=== PATIENT | female | born 1995 | race American Indian/Alaskan Native ===

== ENCOUNTER 2019-05-24 11:43 | Emergency (ER) | payer MEDICAID, MEDICARE ==
--- NOTE | 2019-05-24 12:38 | XRay Report ---
HISTORY:PAIN AND SWELLING COMPARISON: None. TECHNIQUE: AP and lateral views were obtained FINDINGS: Bones: Fracture distal aspect of the cuneiform is noted. This may enter the articular space of the cu neiform metatarsal articulation Joint spaces: Maintained. Soft tissues: No significant abnormality. Additional findings: None. IMPRESSION: 1. Fracture as noted Signer Name: Dougie Park MD Signed: 05/24/2019 12:33 PM Workstation Name: [id number]
[2019-05-24] MEDS ORDERED: IBUPROFEN 800 MG TAB PO ONE (12:42)
--- NOTE | 2019-05-24 13:23 | Emergency Department Report ---
ED General Adult HPI - General Chief complaint: Extremity Injury, Lower Stated complaint: LEFT FOOT PAIN Time Seen by Provider: 05/24/19 12:16 Source: patient Mode of arrival: Wheelchair Limitations: No Limitations - History of Present Illness Initial comments: This is a 24-year-old female who presents the ED complaining of left foot and ankle pain that started yesterday. Patient states that she was walking last night around 7 PM when she accidentally stepped in a pothole. Patient states that pain began shortly after that is gotten a bit worse today with some swelling. Patient states that pain is only worsened with applied pressure. She denies difficulty walking, deformity, loss of consciousness or falling to the ground Severity scale (0 -10): 10 - Related Data Previous Rx's Medication Instructions Recorded Last Taken Type Ibuprofen [Motrin] 800 mg PO Q8HR #30 tablet 05/24/19 Unknown Rx Allergies Allergy/AdvReac Type Severity Reaction Status Date / Time No Known Allergies Allergy Unverified 05/24/19 11:50 ED Review of Systems ROS: Stated complaint: LEFT FOOT PAIN Other details as noted in HPI Comment: All other systems reviewed and negative ED Past Medical Hx - Past Medical History Previous Medical History?: No - Surgical History Past Surgical History?: No - Social History Smoking Status: Never Smoker Substance Use Type: None - Medications Home Medications: Home Medications Medication Instructions Recorded Confirmed Last Taken Type Ibuprofen [Motrin] 800 mg PO Q8HR #30 tablet 05/24/19 Unknown Rx ED Physical Exam - General Limitations: No Limitations General appearance: alert, in no apparent distress - Head Head exam: Present: atraumatic, normocephalic - Eye Eye exam: Present: normal appearance - ENT ENT exam: Present: mucous membranes moist - Neck Neck exam: Present: normal inspection - Respiratory Respiratory exam: Present: normal lung sounds bilaterally. Absent: respiratory distress - Cardiovascular Cardiovascular Exam: Present: regular rate, normal rhythm. Absent: systolic murmur, diastolic murmur, rubs, gallop - GI/Abdominal GI/Abdominal exam: Present: soft, normal bowel sounds - Extremities Exam Extremities exam: Present: normal inspection - Expanded Lower Extremity Exam Left Hip exam: Present: full ROM. Absent: tenderness, swelling Upper Leg exam: Present: normal inspection, full ROM Knee exam: Present: normal inspection. Absent: full ROM, tenderness, swelling Lower Leg exam: Present: normal inspection. Absent: full ROM, tenderness, swelling Ankle exam: Present: normal inspection, full ROM, swelling. Absent: tenderness Foot/Toe exam: Present: full ROM, tenderness (To palpation of the anterior aspect of the foot), swelling (Mild swelling to the anterior foot). Absent: abrasion, laceration, ecchymosis, dislocation, erythema, puncture wound - Back Exam Back exam: Present: normal inspection - Neurological Exam Neurological exam: Present: alert, oriented X3 - Psychiatric Psychiatric exam: Present: normal affect, normal mood - Skin Skin exam: Present: warm, dry, intact, normal color. Absent: rash ED Course Vital Signs 05/24/19 05/24/19 12:53 13:53 Respiratory 18 18 Rate ED Medical Decision Making - Radiology Data Radiology results: report reviewed, image reviewed Fluoro Time In Minutes: HISTORY:PAIN AND SWELLING COMPARISON: None. TECHNIQUE: AP and lateral views were obtained FINDINGS: Bones: Fracture distal aspect of the cuneiform is noted. This may enter the articular space of the cuneiform metatarsal articulation Joint spaces: Maintained. Soft tissues: No significant abnormality. Additional findings: None. IMPRESSION: 1. Fracture as noted Signer Name: Dougie Park MD Signed: 05/24/2019 12:33 PM Workstation Name: [id number] - Medical Decision Making 24-year-old female presents to ED with minimal closed nondisplaced fracture of the cuneiform bone of the foot ED course: Patient received Motrin in ED. X-rays of the foot shows, see report above Vital signs are normal patient is in no acute distress Discussed with patient follow-up with primary care physician. Discussed the patient and take medications as prescribed. Discussed with patient to follow-up with orthopedic doctor within a week. Patient placed in a Albino wrap and postop shoe. Discussed with patient that fracture will heal within 6 to 8 weeks Patient has no neurological deficit. Patient is alert and oriented 3 and understands all instructions given. Critical care attestation.: If time is entered above; I have spent that time in minutes in the direct care of this critically ill patient, excluding procedure time. ED Disposition Clinical Impression: Cuneiform fracture, foot, Closed fracture of foot Disposition: - TO HOME OR SELFCARE Is pt being admited?: No Does the pt Need Aspirin: No Condition: Stable Instructions: Foot Fracture in Adults (ED), Foot Sprain (ED) Additional Instructions: Make sure to follow up with the primary care physician as discussed. Take all your medications as you've been prescribed. If you have any worsening symptoms or develop new symptoms please return to ED immediately. Prescriptions: Ibuprofen [Motrin] 800 mg PO Q8HR #30 tablet Referrals: PRIMARY CAREMD [Primary Care Provider] - 3-5 Days FRANCESCO VÁSQUEZ MD [Staff Physician] - 3-5 Days Forms: Work/School Release Form(ED) Time of Disposition: 13:32
== END 2019-05-24 13:50 | disposition home or self-care (01) ==
LOC: ED 11:43
DX: S92.232A Displaced fracture of intermediate cuneiform of left foot, initial encounter for closed fracture (principal); X58.XXXA Exposure to other specified factors, initial encounter; Y93.89 Activity, other specified; Y92.89 Other specified places as the place of occurrence of the external cause; Y99.8 Other external cause status

== ENCOUNTER 2019-12-11 15:34 | Emergency (ER) | payer MEDICAID ==
[2019-12-11 16:12] VITALS: BP 108/69
--- NOTE | 2019-12-11 16:32 | Event Note ---
ED Screening Note ED Screening Note: suprapubic abd pain that began yesterday low back pain no dysuria +urinary frequency no vaginal discharge no itching or burning no fever no n/v/d PMHx none no allergies to meds LNMP: 09/07/2019 14 weeks RN CLINICAL TRIALS: [facility] no vaginal bleeding This initial assessment/diagnostic orders/clinical plan/treatment(s) is/are subject to change based on patients health status, clinical progression and re- assessment by fellow clinical providers in the ED. Further treatment and workup at subsequent clinical providers discretion. Patient/guardian urged not to elope from the ED as their condition may be serious if not clinically assessed and managed. Initial orders include: labs, UA, US
[2019-12-11 17:25] LABS: Basophils % (Auto) 0.5 % (0.0-1.8); Eosinophils # (Auto) 0.1 K/mm3 (0.0-0.4); Eosinophils % (Auto) 1.6 % (0.0-4.3); Hematocrit 40.2 % (30.3-42.9); Hemoglobin 13.7 gm/dl (10.1-14.3); Lymphocytes # (Auto) 1.5 K/mm3 (1.2-5.4); Lymphocytes % (Auto) 25.1 % (13.4-35.0); Mean Corpuscular HGB Conc 34 % (30-34); Mean Corpuscular Volume 89 fl (79-97); Monocytes # (Auto) 0.5 K/mm3 (0.0-0.8); Platelet Count 169 K/mm3 (140-440); Red Cell Distribution Width 13.7 % (13.2-15.2)
[2019-12-11 17:30] LABS: Alanine Aminotransferase 16 units/L (7-56); Albumin 3.5 g/dL (3.9-5); Blood Urea Nitrogen 5 mg/dL (7-17); Calcium 9.2 mg/dL (8.4-10.2); Hemolysis Index 0
[2019-12-11 17:31] LABS: BUN/Creatinine Ratio 17
--- NOTE | 2019-12-11 18:34 | Ultrasound Report ---
ULTRASOUND OBSTETRIC INDICATION / CLINICAL INFORMATION: , abd pain, back pain. TECHNIQUE: Transabdominal. COMPARISON: None available. FINDINGS: GESTATIONAL SAC: Well-defined oval shape and intrauterine in location. YOLK SAC: No significant abnormality. EMBRYO/FETUS: No significant abnormality. - [place]-Rump Length = 7.8 cm = 13 weeks, 6 day(s). - Heart Rate, beats per minute (if present) = 156 ADNEXA: No significant abnormality. FREE FLUID: None. ADDITIONAL FINDINGS: None. IMPRESSION: 1. Single, living intrauterine with estimated sonographic age of 13 weeks, 6 day(s). Signer Name: Cleveland Kee MD Signed: 12/11/2019 6:30 PM Workstation Name: [id number]
[2019-12-11] MEDS ORDERED: LACTATED RINGERS 1,000 ML IV ONE (19:29)
[2019-12-11] MEDS ORDERED: METOCLOPRAMIDE 10 MG/2 ML INJ IV ONE (19:29)
[2019-12-11] MEDS ORDERED: diphenhydrAMINE 50 MG/ML VIAL IV ONE (19:29)
--- NOTE | 2019-12-11 19:34 | Emergency Department Report ---
ED General Adult HPI - General Chief complaint: Abdominal Pain Stated complaint: ABD PAIN, MIGRAINE PUI?: No Time Seen by Provider: 12/11/19 16:30 Source: patient Mode of arrival: Ambulatory Limitations: No Limitations - History of Present Illness Initial comments: 24-year-old female presenting with multiple complaints. She states that she is about 13 weeks and for the past 2 to 3 days has had a headache consistent with prior migraines with no new features associated with nausea and photophobia. She also complains of abdominal pain, epigastric in location, nonradiating. Denies any vaginal bleeding or lower abdominal pain. Symptoms gradual in onset, moderate in severity with no modifying factors. - Related Data Previous Rx's Medication Instructions Recorded Last Taken Type Ibuprofen [Motrin] 800 mg PO Q8HR #30 tablet 05/24/19 Unknown Rx Metoclopramide [Reglan] 10 mg PO ACHS #20 tablet 12/11/19 Unknown Rx cephALEXin [Keflex] 500 mg PO Q12HR #14 cap 12/11/19 Unknown Rx Allergies Allergy/AdvReac Type Severity Reaction Status Date / Time No Known Allergies Allergy Unverified 05/24/19 11:50 ED Review of Systems ROS: Stated complaint: ABD PAIN, MIGRAINE Other details as noted in HPI Comment: All other systems reviewed and negative Gastrointestinal: as per HPI Neurological: as per HPI ED Past Medical Hx - Past Medical History Previous Medical History?: No - Surgical History Past Surgical History?: No - Social History Smoking Status: Never Smoker Substance Use Type: None - Medications Home Medications: Home Medications Medication Instructions Recorded Confirmed Last Taken Type Ibuprofen [Motrin] 800 mg PO Q8HR #30 tablet 05/24/19 Unknown Rx Metoclopramide [Reglan] 10 mg PO ACHS #20 tablet 12/11/19 Unknown Rx cephALEXin [Keflex] 500 mg PO Q12HR #14 cap 12/11/19 Unknown Rx ED Physical Exam - General Limitations: No Limitations General appearance: alert, in no apparent distress - Head Head exam: Present: atraumatic, normocephalic - Eye Eye exam: Present: normal appearance, PERRL, EOMI - ENT ENT exam: Present: mucous membranes moist - Neck Neck exam: Present: normal inspection - Respiratory Respiratory exam: Present: normal lung sounds bilaterally. Absent: respiratory distress - Cardiovascular Cardiovascular Exam: Present: regular rate, normal rhythm. Absent: systolic murmur, diastolic murmur, rubs, gallop - GI/Abdominal GI/Abdominal exam: Present: soft, tenderness (Mild epigastric), normal bowel sounds. Absent: distended, guarding, rebound - Extremities Exam Extremities exam: Present: normal inspection - Back Exam Back exam: Present: normal inspection - Neurological Exam Neurological exam: Present: alert, oriented X3, CN II-XII intact, normal gait, reflexes normal. Absent: motor sensory deficit - Psychiatric Psychiatric exam: Present: normal affect, normal mood - Skin Skin exam: Present: warm, dry, intact, normal color. Absent: rash ED Course Vital Signs 12/11/19 16:11 Temperature 98.5 F Pulse Rate 75 Respiratory 18 Rate Blood Pressure 108/69 [Right] O2 Sat by Pulse 99 Oximetry ED Medical Decision Making - Lab Data Result diagrams: 12/11/19 16:45 12/11/19 16:45 - Radiology Data Radiology results: report reviewed normal us - Medical Decision Making Patient presenting with abdominal pain, nausea, migraines over the past 3 days. She is also 13 to 14 weeks . On my exam she has some mild epigastric tenderness, no focal neurologic deficits, remainder of exam normal. Labs and ultrasound were obtained, urinalysis ordered, IV fluids, Reglan, Benadryl ord ered. 204 resting comfortably no distress, UA does show some signs of infection, no symptoms but since she is we will treat this. Recommend outpatient follow-up with PCP or TRANSPORTATION PROGRAM DIRECTOR. - Differential Diagnosis Gastritis, viral syndrome, migraine Critical care attestation.: If time is entered above; I have spent that time in minutes in the direct care of this critically ill patient, excluding procedure time. ED Disposition Clinical Impression: Migraine Qualifiers: Migraine type: unspecified Status migrainosus presence: without status migraino scott Intractability: not intractable Qualified Code(s): G43.909 - Migraine, unspecified, not intractable, without status migrainosus UTI in Qualifiers: Trimester: second trimester Qualified Code(s): O23.42 - Unspecified infection of urinary tract in , second trimester Disposition: TO HOME OR SELFCARE Is pt being admited?: No Condition: Stable Instructions: Abdominal Pain (ED), Urinary Tract Infection, Adult, [id number], Migraine Headache, [id number] Prescriptions: cephALEXin [Keflex] 500 mg PO Q12HR #14 cap Metoclopramide [Reglan] 10 mg PO ACHS #20 tablet Referrals: MAIDA WILSON NP-C [Primary Care Provider] - 3-5 Days Time of Disposition: 20:53
[2019-12-11 20:47] LABS: Bacteria,Urine 1+ /HPF (Negative); Bilirubin,Urine NEG (Negative); Blood,Urine SM (Negative); Color,Urine Yellow (Yellow); Mucus,Urine 2+ /HPF; Urobilinogen,Urine < 2.0 mg/dL (<2.0)
== END 2019-12-11 21:00 | disposition home or self-care (01) ==
LOC: ED 15:34
DX: O23.41 Unspecified infection of urinary tract in pregnancy, first trimester (principal); O26.891 Other specified pregnancy related conditions, first trimester; G43.909 Migraine, unspecified, not intractable, without status migrainosus; Z3A.13 13 weeks gestation of pregnancy; Z79.1 Long term (current) use of non-steroidal anti-inflammatories (NSAID); Z79.899 Other long term (current) drug therapy
CPT/HCPCS: 36415; 76805; 80053; 81001; 83690; 84702; 85025; 87086; 96361; 96374; 96375; 99284; J1200; J2765; J7120

== ENCOUNTER 2019-12-17 16:14 | Emergency (ER) | payer MEDICAID ==
[2019-12-17 17:04] VITALS: BP 122/68
--- NOTE | 2019-12-17 18:22 | Event Note ---
ED Screening Note ED Screening Note: 24-year-old female who is 3 months paroxysmal department complaining of a 1 day history of vaginal bleeding presents emergency department to seek evaluation of her to ensure that L is still safe. She reports no pain no fever, chills, sweats no nausea vomiting This initial assessment/diagnostic orders/clinical plan/treatment(s) is/are subject to change based on patients health status, clinical progression and re- assessment by fellow clinical providers in the ED. Further treatment and workup at subsequent clinical providers discretion. Patient/guardian urged not to elope from the ED as their condition may be serious if not clinically assessed and managed. Initial orders include: Labs and ultrasound
[2019-12-17 18:43] LABS: Basophils % (Auto) 0.5 % (0.0-1.8); Eosinophils # (Auto) 0.1 K/mm3 (0.0-0.4); Eosinophils % (Auto) 2.1 % (0.0-4.3); Hematocrit 42.6 % (30.3-42.9); Hemoglobin 14.5 gm/dl (10.1-14.3); Lymphocytes # (Auto) 1.6 K/mm3 (1.2-5.4); Lymphocytes % (Auto) 24.5 % (13.4-35.0); Mean Corpuscular HGB Conc 34 % (30-34); Mean Corpuscular Volume 90 fl (79-97); Monocytes # (Auto) 0.5 K/mm3 (0.0-0.8); Platelet Count 175 K/mm3 (140-440); Red Blood Count 4.74 M/mm3 (3.65-5.03); Red Cell Distribution Width 13.9 % (13.2-15.2)
--- NOTE | 2019-12-17 20:20 | Emergency Department Report ---
ED Female HPI - General Chief complaint: Vaginal Bleeding Stated complaint: POSSIBLE MISCARRAIGE Source: patient Mode of arrival: Ambulatory Limitations: No Limitations - History of Present Illness Initial comments: Patient is a A0 24-year-old female with no past medical history who is approximately 12 weeks gestation and who presents to the ED with complaint of acute onset persistent heavy vaginal bleeding for the last 12 hours. Patient states that the bleeding has been heavy initially and now she is spotting persistently for the last 3 hours. Patient denies vaginal pain, dysuria, urinary frequency and urgency, vaginal discharge, abdominal pain, nausea, vomiting, fever, chills, low back pain, dizziness, syncope, chest pain, shortness of breath, sore throat, cough or seizure and diarrhea. MD Complaint: vaginal bleeding, pelvic pain (Suprapubic pressure) -: Sudden (Suprapubic pressure), hour(s) (12) Location: suprapubic, other (Vaginal) Radiation: non-radiating Severity: mild Severity scale (0 -10): 0 Quality: dull Consistency: constant Improves with: none Worsens with: none Are you Now?: Yes (12 weeks gestation) Associated Symptoms: denies other symptoms, vaginal bleeding. denies: vaginal discharge, abdominal pain, nausea/vomiting, fever/chills, dysuria, rash, seizure, shortness of breath, syncope, weakness - Related Data Sexually active: Yes : 3 Para: 2 A: 0 Previous Rx's Medication Instructions Recorded Last Taken Type Ibuprofen [Motrin] 800 mg PO Q8HR #30 tablet 05/24/19 Unknown Rx Metoclopramide [Reglan] 10 mg PO ACHS #20 tablet 12/11/19 Unknown Rx cephALEXin [Keflex] 500 mg PO Q12HR #14 cap 12/11/19 Unknown Rx Allergies Allergy/AdvReac Type Severity Reaction Status Date / Time No Known Allergies Allergy Unverified 05/24/19 11:50 ED Review of Systems ROS: Stated complaint: POSSIBLE MISCARRAIGE Other details as noted in HPI Constitutional: denies: chills, fever Eyes: denies: eye pain, eye discharge, vision change ENT: denies: ear pain, throat pain Respiratory: denies: cough, shortness of breath, wheezing Cardiovascular: denies: chest pain, palpitations Endocrine: no symptoms reported Gastrointestinal: denies: abdominal pain, nausea, vomiting, diarrhea, hematochezia Genitourinary: abnormal menses (Heavy vaginal bleeding). denies: urgency, dysuria, frequency, hematuria, discharge Musculoskeletal: denies: back pain, joint swelling, arthralgia Skin: denies: rash, lesions Neurological: denies: headache, weakness, paresthesias Psychiatric: denies: anxiety, depression Hematological/Lymphatic: denies: easy bleeding, easy bruising ED Past Medical Hx - Past Medical History Previous Medical History?: No - Surgical History Past Surgical History?: No - Social History Smoking Status: Never Smoker Substance Use Type: None - Medications Home Medications: Home Medications Medication Instructions Recorded Confirmed Last Taken Type Ibuprofen [Motrin] 800 mg PO Q8HR #30 tablet 05/24/19 Unknown Rx Metoclopramide [Reglan] 10 mg PO ACHS #20 tablet 12/11/19 Unknown Rx cephALEXin [Keflex] 500 mg PO Q12HR #14 cap 12/11/19 Unknown Rx ED Physical Exam - General Limitations: No Limitations General appearance: alert, in no apparent distress - Head Head exam: Present: atraumatic, normocephalic, normal inspection - Eye Eye exam: Present: normal appearance, PERRL, EOMI Pupils: Present: normal accommodation - ENT ENT exam: Present: normal exam, normal orophraynx, mucous membranes moist, TM's normal bilaterally, normal external ear exam - Neck Neck exam: Present: normal inspection, full ROM - Respiratory Respiratory exam: Present: normal lung sounds bilaterally. Absent: respiratory distress, wheezes, rhonchi, chest wall tenderness, accessory muscle use, decreased breath sounds, prolonged expiratory - Cardiovascular Cardiovascular Exam: Present: regular rate, normal rhythm, normal heart sounds. Absent: systolic murmur, diastolic murmur, rubs, gallop - GI/Abdominal GI/Abdominal exam: Present: soft, normal bowel sounds. Absent: tenderness, guarding, rebound, hyperactive bowel sounds, hypoactive bowel sounds, organomegaly - Bi-manual exam: Present: other (Pelvic exam deferred, patient prefers own GRAB DRIVER physician) - Extremities Exam Extremities exam: Present: normal inspection, full ROM, normal capillary refill - Back Exam Back exam: Present: normal inspection, full ROM. Absent: tenderness, CVA tenderness (R), CVA tenderness (L), muscle spasm, paraspinal tenderness - Neurological Exam Neurological exam: Present: alert, oriented X3, CN II-XII intact, normal gait, r eflexes normal - Psychiatric Psychiatric exam: Present: normal affect, normal mood - Skin Skin exam: Present: warm, dry, intact, normal color. Absent: rash ED Course Vital Signs 12/17/19 16:58 Temperature 98.2 F Pulse Rate 82 Respiratory 14 Rate Blood Pressure 122/68 [Right] O2 Sat by Pulse 100 Oximetry ED Medical Decision Making - Lab Data Result diagrams: 12/17/19 18:27 12/17/19 20:26 - Radiology Data Radiology results: report reviewed, image reviewed Findings [facility] [address] [place] [address] Ultrasound Report Signed Patient: JIM BRINK MR#: [id number] : 1995 Acct:[id number] Age/Sex: 24 / F ADM Date: 12/17/19 Loc: ED Attending Dr: Ordering Physician: PATSY GILL Date of Service: 12/17/19 Procedure(s): US OB <= 14 weeks fetus Accession Number(s): [id number] cc: PATSY GILL ULTRASOUND OBSTETRIC INDICATION / CLINICAL INFORMATION: Vaginal bleeding. Clinical Gestational Age (GA): 14.6 weeks.days TECHNIQUE: Transabdominal. COMPARISON: 12/11/2019 oh the ultrasound FINDINGS: There is a single intrauterine . Biparietal Diameter = 3.0 cm = 15.3 weeks.days [place]-rump length = 8.6 cm = 14.3 weeks.days Femur Length = 1.6 cm = 14.5 weeks.days Average Ultrasound Age (AUA) = 14.6 weeks.days Heart Rate: 152 beats per minute. Cervix: Appears closed. Length in cm (if measured): 3.6 cm Placenta: Anterior and appears free of the os. Amniotic Fluid Volume: Subjectively normal Maternal Adnexa: No significant abnormality. IMPRESSION: 1. Single, living intrauterine with estimated sonographic age of 14.6 weeks.days 2. No significant sonographic abnormality. Signer Name: Francesco Lucas MD Signed: 12/17/2019 10:29 PM Workstation Name: [id number] Transcribed By: Dictated By: FRANCESCO LUCAS III Electronically Authenticated By: FRANCESCO ZAMUDIOOLD MILO Signed Date/Time: 12/17/192228 DD/ 22 TD/TT: - Medical Decision Making This is a A0 24-year-old female with no past medical history who is approximately 12 weeks gestation and who presents to the ED with complaint of acute onset persistent heavy vaginal bleeding for the last 12 hours. Patient states that the bleeding has been heavy initially and now she is spotting persistently for the last 3 hours. In the ED, patient is alert and oriented x3 and is not in distress. Patient is hemodynamically stable in triage. Lab test results [place] [address].0. The rest of the lab test results are nonactionable. Transvaginal ultrasound was performed and showed a single, living intrauterine with estimated sonographic age of 14.6 weeks.days with a heart rate of 152 bpm and no significant sonographic abnormality. The rest of the lab test results were nonactionable. On reevaluation, patient is resting comfortably on the bed, and is hemodynamically stable. Patient was discharged home and advised to follow-up with her GRAB DRIVER physician in 2 to 3 days for reevaluation. Patient was also advised to maintain a complete pelvic rest with no strenuous physical activity or sexual activity. Patient was advised return to the ED immediately if symptoms get worse. - Differential Diagnosis Threatened miscarriage, subchorionic bleed, UTI, fibroids, kidney stones Critical care attestation.: If time is entered above; I have spent that time in minutes in the direct care of this critically ill patient, excluding procedure time. ED Disposition Clinical Impression: Threatened miscarriage, Vaginal bleeding in patient after first trimester Disposition: DC-01 TO HOME OR SELFCARE Is pt being admited?: No Does the pt Need Aspirin: No Condition: Stable Instructions: Threatened Miscarriage, Vaginal Bleeding During , First Trimester, [id number] Additional Instructions: All lab test results were nonactionable and the transvaginal ultrasound shows a single living intrauterine of approximately 14 weeks and 6 days, and with a heart rate of 152 bpm with no acute abnormalities. Therefore maintain a complete pelvic rest with no physical or strenuous activities including sexual intercourse. Follow-up with your GRAB DRIVER physician in 24 to 48 hours for reevaluation. Return to the ED immediately if symptoms get worse. Referrals: DARRYN ESCOBAR MD [Staff Physician] - 2-3 Days Time of Disposition: 23:01 Print Language: SRI LANKAN
[2019-12-17 20:54] LABS: Alanine Aminotransferase 20 units/L (7-56); Albumin 3.7 g/dL (3.9-5); Blood Urea Nitrogen 6 mg/dL (7-17); Calcium 9.2 mg/dL (8.4-10.2); Hemolysis Index 9
[2019-12-17 20:57] LABS: BUN/Creatinine Ratio 15
[2019-12-17 21:55] LABS: Bilirubin,Urine NEG (Negative); Blood,Urine NEG (Negative); Color,Urine Amber (Yellow); Mucus,Urine 3+ /HPF; Urobilinogen,Urine < 2.0 mg/dL (<2.0)
--- NOTE | 2019-12-17 22:34 | Ultrasound Report ---
ULTRASOUND OBSTETRIC INDICATION / CLINICAL INFORMATION: Vaginal bleeding. Clinical Gestational Age (GA): 14.6 weeks.days TECHNIQUE: Transabdominal. COMPARISON: 12/11/2019 oh the ultrasound FINDINGS: There is a single intrauterine . Biparietal Diameter = 3.0 cm = 15.3 weeks.days [place]-rump length = 8.6 cm = 14.3 weeks.days Femur Length = 1.6 cm = 14.5 weeks.days Average Ultrasound Age (AUA) = 14.6 weeks.days Heart Rate: 152 beats per minute. Cervix: Appears closed. Length in cm (if measured): 3.6 cm Placenta: Anterior and appears free of the os. Amniotic Fluid Volume: Subjectively normal Maternal Adnexa: No significant abnormality. IMPRESSION: 1. Single, living intrauterine with estimated sonographic age of 14.6 weeks.days 2. No significant sonographic abnormality. Signer Name: Al Lucas MD Signed: 12/17/2019 10:29 PM Workstation Name: [id number]
== END 2019-12-17 23:20 | disposition home or self-care (01) ==
LOC: ED 16:14
DX: O20.0 Threatened abortion (principal); Z79.1 Long term (current) use of non-steroidal anti-inflammatories (NSAID); Z79.899 Other long term (current) drug therapy; Z3A.12 12 weeks gestation of pregnancy
CPT/HCPCS: 36415; 76801; 80053; 81001; 84702; 85025; 86900; 86901

== ENCOUNTER 2020-08-21 06:19 | Emergency (ER) | payer MEDICAID ==
[2020-08-21 07:48] VITALS: BP 118/70
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
[2020-08-21 11:48] LABS: Basophils % (Auto) 0.6 % (0.0-1.8); Eosinophils % (Auto) 0.4 % (0.0-4.3); Hematocrit 40.4 % (30.3-42.9); Hemoglobin 13.9 gm/dl (10.1-14.3); Lymphocytes # (Auto) 1.2 K/mm3 (1.2-5.4); Lymphocytes % (Auto) 21.1 % (13.4-35.0); Mean Corpuscular HGB Conc 35 % (30-34); Mean Corpuscular Volume 88 fl (79-97); Monocytes # (Auto) 0.3 K/mm3 (0.0-0.8); Monocytes % (Auto) 6.3 % (0.0-7.3); Platelet Count 182 K/mm3 (140-440); Red Blood Count 4.59 M/mm3 (3.65-5.03); Red Cell Distribution Width 14.1 % (13.2-15.2)
[2020-08-21 12:07] LABS: Blood Urea Nitrogen 9 mg/dL (7-17); Calcium 9.3 mg/dL (8.4-10.2); Creatine Kinase MB 2.9 ng/mL (0.0-4.0); Hemolysis Index 6
[2020-08-21 12:30] LABS: BUN/Creatinine Ratio 23
--- NOTE | 2020-08-21 13:13 | XRay Report ---
CHEST 1 VIEW 08/21/2020 12:36 PM INDICATION / CLINICAL INFORMATION: Shortness of breath. COMPARISON: None available. FINDINGS: SUPPORT DEVICES: None. HEART / MEDIASTINUM: No significant abnormality. LUNGS / PLEURA: No significant pulmonary abnormality. No significant pleural effusion. No pneumothora x. ADDITIONAL FINDINGS: No significant additional findings. IMPRESSION: 1. No acute abnormality of the chest. Signer Name: Amrit Tyson MD Signed: 08/21/2020 1:09 PM Workstation Name: [id number]
--- NOTE | 2020-08-21 13:44 | Nuclear Medicine Report ---
PERFUSION SCINTIGRAPHY INDICATION: , shortness of breath, syncope, altered mental status, chest pain, ER patient COMPARISON: Portable chest x-ray today RADIOPHARMACEUTICAL: 2.5 mCi technetium MAA IV FINDINGS: Only mild peripheral defects are seen in the right lung. In the lower left lung moderate pe rfusion defect is noted without a corresponding radiographic finding. This probably is in the lingula . IMPRESSION: Study is intermediate/indeterminate in probability for pulmonary thromboembolism. I do no t have a ventilation study to determine possible matching ventilation defect. CTA chest with abdomina l shielding is suggested if there is a strong clinical concern for PTE. Signer Name: Gibson Rob MD Signed: 08/21/2020 1:40 PM Workstation Name: [id number]
--- NOTE | 2020-08-21 15:03 | Ultrasound Report ---
PELVIC ULTRASOUND INDICATION: , shortness of breath , quantitative hCG 3708 COMPARISON: None recent TECHNIQUE: Endovaginal FINDINGS: The uterus measures approximately 9 cm in length. Prominently abnormal endometrial canal is seen. The canal is widened to proximally 3.8 cm AP diameter and contains a large amount of mixed ech ogenicity material without discernible blood flow. Some of this solid type material shows multiple ti ny cystic areas. There is one small defined isolated cystic area measuring 8 mm which is not clearly an intrauterine . No significant parts are seen within this tiny cystic area. Right ovary measures 4 cm in length and shows no significant abnormalities. The left ovary measures 3 .1 cm in length and shows a 2.1 cm hypoechoic rounded area with moderate mixed internal echoes and pr ominent peripheral vascularity. No significant free fluid is seen with only a trace near the uterus. IMPRESSION: 1. I cannot confirm intrauterine . Tiny isolated cystic area in the upper endometrium is non specific 2. Large amount of abnormal material in the endometrial canal as above. Though this does not have lef t lobe, portions of this with multiple tiny cystic areas resembling an appearance that can be seen wi th molar . Part of this material could represent blood though I do not have a history in dis cussion with with Dr. Santos of vaginal bleeding. Possibly a portion of the hypoechoic area could be a central leiomyoma but this is thought unlikely based on the appearance 3. Left ovary shows a complex lesion with significant peripheral vascularity. Though this could just represent a hemorrhagic cyst, ectopic with internal hemorrhage is not excluded. I do not se e evidence of bleeding within the peritoneal cavity. CRITICAL RESULT: Time of Discovery (FLATBED STITCHER/CDT): 1345 Time of Communication (FLATBED STITCHER/CDT): 1352 Licensed Practitioner Receiving Report: Dr. Santos Read-Back Performed: Not applicable. Signer Name: Gibson Rob MD Signed: 08/21/2020 2:58 PM Workstation Name: [id number]
--- NOTE | 2020-08-21 15:26 | Ultrasound Report ---
PELVIC ULTRASOUND INDICATION: , shortness of breath COMPARISON: None pertinent available TECHNIQUE: Transabdominal FINDINGS: See detailed report under endovaginal pelvic ultrasound today Signer Name: Gibson Rob MD Signed: 08/21/2020 3:22 PM Workstation Name: [id number]
--- NOTE | 2020-08-21 16:45 | Cat Scan Report ---
CTA CHEST WITH IV CONTRAST INDICATION: Shortness of breath, indeterminate V/Q. TECHNIQUE: Axial CT images were obtained through the chest after injection of 100 cc Omnipaque 300 IV contrast. 3 plane MIP reconstructions were produced. All CT scans at this location are performed using CT dose reduction for ALARA by means of automated exposure control. COMPARISON: None available. FINDINGS: Pulmonary Arteries: No pulmonary emboli. Lungs: No significant abnormality. Trachea and Bronchi: No significant abnormality. Heart and Pericardium: No significant abnormality. Vasculature: No significant abnormality. Lymphatics: No lymphadenopathy. Additional Findings: None. Upper Abdomen: Cholelithiasis noted. Skeletal Structures: No acute findings or aggressive bone lesions. IMPRESSION: 1. No CT evidence for pulmonary embolism. 2. No acute findings. 3. Cholelithiasis. Signer Name: Kamar Hernandez MD Signed: 08/21/2020 4:40 PM Workstation Name: [id number]
--- NOTE | 2020-08-25 09:07 | Electrocardiograph Report ---
[facility] Test Date: 2020-08-21 Test Time: 07:53:00 Pat Name: JIM BRINK Department: Room: Gender: F Casino Manager: JANIS : 1995 Requested By: SEGUNDO JACOBS Order Number: [id number] Reading MD: Tavares Thayer Measurements Intervals [place] Rate: 85 P: 66 OK: 155 QRS: 40 QRSD: 113 T: 16 QT: 399 QTc: 476 Interpretive Statements Sinus rhythm Incomplete right bundle branch block No previous ECG available for comparison Electronically Signed On 08-25-2020 9:06:48 EDT by Tavares Thayer
== END 2020-08-21 17:13 | disposition home or self-care (01) ==
LOC: ED 06:19
DX: F41.9 Anxiety disorder, unspecified (principal); Z03.89 Encounter for observation for other suspected diseases and conditions ruled out; F32.9 Major depressive disorder, single episode, unspecified; F17.200 Nicotine dependence, unspecified, uncomplicated; Z79.1 Long term (current) use of non-steroidal anti-inflammatories (NSAID); Z79.899 Other long term (current) drug therapy
CPT/HCPCS: 36415; 71045; 71275; 76801; 76817; 78580; 80048; 82550; 82553; 84484; 84702; 85025; 85379; 93005; 99285; A9540; Q9967; 80320; G0480

== ENCOUNTER 2020-08-23 14:33 | Emergency (ER) | payer MEDICAID ==
--- NOTE | 2020-08-23 14:49 | Emergency Department Report ---
Blank Doc - Documentation Documentation: 25-year-old female that presents with pelvic pains, left-sided chest pain and shortness of breath. Patient also stated has some chest tightness. Patient stated was seen several days ago and symptoms is worsened. Patient stated she was diagnosed with ectopic several days ago and still has heavy vaginal bleeding. CTA has been obtained several days ago as well. 1- This is a initial triage assessment/medical screening only. Full assessment and work-up will be completed once the patient is in proper hospital gown, ED bed and in a private room setting. This initial assessment/diagnostic orders/clinical plan/ treatment(s) is/are subject to change based on pt's health status, clinical progression and re-assessment by fellow clinical providers in the ED. Further treatment and workup at subsequent clinical providers discretion. Patient/guardians urged not to elope from ED as their condition may be serious if not clinically assessed and managed. 2-cardiac work-up 3-UA 4- ultrasound ordered
[2020-08-23 15:47] VITALS: BP 101/54
[2020-08-23 15:51] LABS: Basophils % (Auto) 0.7 % (0.0-1.8); Eosinophils # (Auto) 0.1 K/mm3 (0.0-0.4); Eosinophils % (Auto) 1.9 % (0.0-4.3); Hematocrit 39.9 % (30.3-42.9); Hemoglobin 13.5 gm/dl (10.1-14.3); Lymphocytes # (Auto) 1.4 K/mm3 (1.2-5.4); Lymphocytes % (Auto) 28.1 % (13.4-35.0); Mean Corpuscular HGB Conc 34 % (30-34); Mean Corpuscular Volume 89 fl (79-97); Monocytes # (Auto) 0.5 K/mm3 (0.0-0.8); Monocytes % (Auto) 10.5 % (0.0-7.3); Platelet Count 188 K/mm3 (140-440); Red Blood Count 4.47 M/mm3 (3.65-5.03); Red Cell Distribution Width 14.1 % (13.2-15.2)
[2020-08-23 16:02] LABS: INR 1.07 (0.87-1.13); Partial Thromboplastin Time 30.4 Sec. (24.2-36.6)
[2020-08-23 16:03] LABS: Alanine Aminotransferase 38 units/L (7-56); Blood Urea Nitrogen 10 mg/dL (7-17); Calcium 9.1 mg/dL (8.4-10.2); Hemolysis Index 4
[2020-08-23 16:07] LABS: BUN/Creatinine Ratio 25
[2020-08-23 17:06] LABS: Bacteria,Urine 1+ /HPF (Negative); Bilirubin,Urine NEG (Negative); Blood,Urine NEG (Negative); Color,Urine Amber (Yellow); Mucus,Urine 3+ /HPF
--- NOTE | 2020-08-23 17:07 | XRay Report ---
CHEST 2 VIEWS INDICATION / CLINICAL INFORMATION: Chest Pain. FINDINGS: SUPPORT DEVICES: None. HEART / MEDIASTINUM: No significant abnormality. LUNGS / PLEURA: No significant pulmonary or pleural abnormality. No pneumothorax. ADDITIONAL FINDINGS: No significant additional findings. IMPRESSION: 1. No acute findings. Signer Name: Danny Nava MD Signed: 08/23/2020 5:03 PM Workstation Name: [id number]
--- NOTE | 2020-08-23 18:21 | Ultrasound Report ---
Transvaginal pelvic ultrasound INDICATION: Pelvic pain with vaginal bleeding with history of ectopic TECHNIQUE: Real-time transvaginal ultrasound performed with grayscale and Doppler imaging COMPARISON: 08/21/2020 FINDINGS: No definite intrauterine is currently identified, similar to the prior exam. The endometrial complex again appears abnormal and is severely thickened at almost 3 cm in diameter. No s ignificant Doppler flow was appreciated in this thickened endometrial region There is a nonspecific hypoechoic saclike abnormality within the endometrium however no yolk sac or f etal pole is identified and this is ultimately a nonspecific hypoechoic structure. The right ovary is normal. The left ovary contains a mildly suspicious partially cystic lesion with s olid peripheral Doppler flow. No pole or yolk sac is identified within this cystic structure. N o significant free pelvic fluid is identified. IMPRESSION: Again no definite intrauterine is identified and ultimately given the complexit y of the left ovary, a tiny early ectopic cannot be excluded based on these images alone ho wever there is no evidence of significant intraperitoneal fluid, similar to the prior exam. Although the endometrium is significantly thickened at this appears slightly less complex in overall appearanc e from 08/21/2020. Ultimately I would recommend continued short-term ultrasound follow-up. Signer Name: Danny Nava MD Signed: 08/23/2020 6:16 PM Workstation Name: [id number]
--- NOTE | 2020-08-25 09:15 | Electrocardiograph Report ---
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
== END 2020-08-23 21:00 | disposition left against medical advice (07) ==
LOC: ED 14:33
DX: R07.9 Chest pain, unspecified (principal); Z53.21 Procedure and treatment not carried out due to patient leaving prior to being seen by health care provider
CPT/HCPCS: 36415; 71046; 76817; 80053; 81001; 84484; 84702; 85025; 85610; 85730; 93005

== ENCOUNTER 2021-04-26 01:07 | Inpatient (IN) | payer MEDICAID ==
[2021-04-26] MEDS ORDERED: OXYTOCIN DRIP 30,000 MILLIUNITS/500 ML BAG IV ONE (01:30)
--- NOTE | 2021-04-26 01:46 | History and Physical Report ---
History of Present Illness Date of examination: 04/26/21 Date of admission: 04/26/21 01:07 Chief complaint: home delivery History of present illness: Pt is a that presents to hospital via ems s/p vaginal delivery at home at midnight and delivery of placenta spontaneously after arrival in the labor and delivery unit. She has no c/o at this time. States she went to [facility] with Dr. Neil Tejeda for about 2 to 3 visits with first being at 33 wks as per the pt mother who is present at the bedside and at 24 wks as per the pt. EFW at this time per both was 5lbs. 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 Tejeda office EGA at time of the sonogram is not clear as pt is poor historian) Actual Gestation: 40 Week(s) 0 Day(s) : 4 Para: 4 Number of Pregnancies: 4 Number of Living Children: 4 Medications and Allergies Allergies Allergy/AdvReac Type Severity Reaction Status Date / Time No Known Allergies Allergy Unverified 05/24/19 11:50 Home Medications Medication Instructions Recorded Confirmed Last Taken Type Ibuprofen [Motrin] 800 mg PO Q8HR #30 tablet 05/24/19 Unknown Rx Metoclopramide [Reglan] 10 mg PO ACHS #20 tablet 12/11/19 Unknown Rx cephALEXin [Keflex] 500 mg PO Q12HR #14 cap 12/11/19 Unknown Rx Review of Systems All systems: negative - Vital Signs Vital signs: Vital Signs Pulse Pulse Ox 91 H 99 04/26/21 01:09 04/26/21 01:09 Temp Pulse Resp BP Pulse Ox 95 H 118/57 100 04/26/21 01:39 04/26/21 01:10 04/26/21 01:39 - Physical Exam Cardiovascular: Normal S1, Normal S2 Lungs: Positive: Normal air movement Abdomen: Positive: normal appearance, soft. Negative: distention, tenderness, guarding Genitourinary (Female): Positive: normal external genitalia, normal perenium, other (no lesions noted no lacerations noted) Results All other labs normal. Assessment and Plan - Patient Problems (1) (normal spontaneous vaginal delivery) Current Visit: Yes Status: Acute Plan to address problem: -routine pp care -obtain labs -attempt to obtain records (2) Limited care in third trimester Current Visit: Yes Status: Acute (3) Multiparity, grand, in labor and delivery, delivered Current Visit: Yes Status: Acute
[2021-04-26] MEDS ORDERED: miSOPROStol 200 MCG TAB PR PRN (01:48)
[2021-04-26] MEDS ORDERED: OXYTOCIN 10 UNIT/1 ML INJ IM PRN (01:48)
[2021-04-26] MEDS ORDERED: ONDANSETRON 4 MG/2 ML INJ IV PRN ×2 (01:48→03:35)
[2021-04-26] MEDS ORDERED: BUTORPHANOL 2 MG/1 ML INJ IV PRN (01:48)
[2021-04-26] MEDS ORDERED: LOPERAMIDE 2 MG CAP PO PRN (01:48)
[2021-04-26] MEDS ORDERED: NALOXONE 0.4 MG/1 ML INJ IV PRN (01:48)
[2021-04-26] MEDS ORDERED: ACETAMINOPHEN 325 MG TAB PO PRN (01:48)
[2021-04-26] MEDS ORDERED: fentaNYL 100 MCG/2 ML INJ IV PRN (01:48)
[2021-04-26] MEDS ORDERED: CARBOPROST TROMETHAMINE 250 MCG/1 ML INJ IM PRN (01:48)
[2021-04-26] MEDS ORDERED: METHYLERGONOVINE MALEATE 0.2 MG/ML VIAL IM PRN (01:48)
[2021-04-26] MEDS ORDERED: TERBUTALINE 1 MG/1 ML INJ SUB-Q PRN (01:48)
[2021-04-26] MEDS ORDERED: LIDOCAINE (2%) 20 MG/1 ML VIAL 20 ML MDV INFILTRATI ONE (01:48)
[2021-04-26] MEDS ORDERED: MINERAL OIL 30 ML ORAL LIQD PO PRN (01:48)
[2021-04-26] MEDS ORDERED: ePHEDrine SULFATE 50 MG/1 ML INJ IV PRN (01:48)
[2021-04-26] MEDS ORDERED: LACTATED RINGERS 1,000 ML IV SCH (02:00)
[2021-04-26] MEDS ORDERED: OXYTOCIN DRIP 30 UNITS/500 ML BAG IV SCH ×2 (02:00)
[2021-04-26 02:39] LABS: Hematocrit 29.9 % (30.3-42.9); Mean Corpuscular HGB Conc 33 % (30-34); Mean Corpuscular Volume 86 fl (79-97); Platelet Count 170 K/mm3 (140-440); Red Blood Count 3.49 M/mm3 (3.65-5.03); Red Cell Distribution Width 15.3 % (13.2-15.2)
[2021-04-26] MEDS ORDERED: MAGNESIUM HYDROXIDE (MOM) ORAL LIQD UDC PO PRN (03:35)
[2021-04-26] MEDS ORDERED: WITCH HAZEL/ GLYCERIN PAD TP PRN (03:35)
[2021-04-26] MEDS ORDERED: PROMETHAZINE 25 MG TAB PO PRN (03:35)
[2021-04-26] MEDS ORDERED: KETOROLAC 30 MG/1 ML INJ IV PRN (03:35)
[2021-04-26] MEDS ORDERED: PROMETHAZINE 25 MG RECT SUPP PR PRN (03:35)
[2021-04-26] MEDS ORDERED: LANOLIN/ZINC/DIMETHICONE (LANSINOH) 7 GM TP PRN (03:35)
[2021-04-26] MEDS ORDERED: diphenhydrAMINE 25 MG CAP PO PRN (03:35)
[2021-04-26] MEDS: IBUPROFEN 800 MG TAB PO SCH ×4 (04:28→23:17)
--- NOTE | 2021-04-26 12:32 | Progress Note ---
Assessment and Plan VSSAF; Pt reports ambulating, voiding, and eating without difficulties. Pt requesting depo shot before discharge. POC with precautions and follow up visit d/w pt. control options reviewed. Questions encouraged and answered. Pt verbalizes understanding and agrees to POC. - Patient Problems (1) Limited care in third trimester Current Visit: Yes Status: Acute Plan to address problem: Records requested (2) (normal spontaneous vaginal delivery) Current Visit: Yes Status: Acute Plan to address problem: continue pathway Subjective - Subjective Date of service: 04/26/21 Principal diagnosis: Patient reports: appetite normal, voiding normally, pain well controlled, ambulating normally : doing well, bottle feeding Objective - Vital Signs Latest vital signs: Vital Signs Temp Pulse Resp BP Pulse Ox Pulse Ox 04/26/21 08:00 98 04/26/21 07:43 97.9 F 84 18 108/57 98 04/26/21 05:28 18 04/26/21 04:28 18 04/26/21 04:04 97.0 F L 80 18 113/50 99 100 04/26/21 03:40 78 109/55 04/26/21 03:34 79 99 04/26/21 03:29 89 100 04/26/21 03:25 80 106/55 04/26/21 03:24 82 99 04/26/21 03:19 89 100 04/26/21 03:14 87 100 04/26/21 03:10 83 105/59 04/26/21 03:09 87 100 04/26/21 03:04 78 100 04/26/21 02:59 110 H 100 04/26/21 02:55 97 H 110/65 04/26/21 02:54 98 H 100 04/26/21 02:49 88 100 04/26/21 02:44 89 99 04/26/21 02:40 86 108/62 04/26/21 02:39 85 100 04/26/21 02:34 103 H 99 04/26/21 02:29 110 H 100 04/26/21 02:25 76 109/55 04/26/21 02:24 80 100 04/26/21 02:19 76 99 04/26/21 02:14 80 99 04/26/21 02:10 81 118/60 04/26/21 02:09 88 100 04/26/21 02:04 94 H 95 04/26/21 01:59 84 100 04/26/21 01:55 86 111/70 04/26/21 01:54 91 H 100 04/26/21 01:49 95 H 99 04/26/21 01:44 79 99 04/26/21 01:39 95 H 100 04/26/21 01:34 90 99 100 04/26/21 01:29 90 99 04/26/21 01:24 88 98 04/26/21 01:19 84 99 04/26/21 01:14 78 100 04/26/21 01:10 91 H 118/57 04/26/21 01:09 91 H 99 Intake and Output 04/25/21 04/26/21 04/26/21 23:59 07:59 15:59 Intake Total 360 360 Output Total 400 600 Balance -40 -240 Intake: Oral 240 360 Intake, Free Water 120 Output: Urine 400 600 Void 400 600 Other: Total, Intake Amount 240 360 Total, Output Amount 400 600 # Voids Void 1 Weight 214 lb Patient Weight 04/26/21 23:59 Weight 214 lb - Exam Breasts: Present: normal Cardiovascular: Present: Regular rate Lungs: Present: Normal air movement Abdomen: Present: normal appearance, soft. Absent: distention, tenderness, guarding Vulva: both: normal Uterus: Present: normal, firm, fundal height below umbilicus Extremities: Present: normal Comments: scant lochia noted on keyon-pad - Labs Labs: Abnormal lab results 04/26/21 Range/Units 01:23 WBC 16.2 H (4.5-11.0) K/mm3 RBC 3.49 L (3.65-5.03) M/mm3 Hgb 10.0 L (10.1-14.3) gm/dl Hct 29.9 L (30.3-42.9) % RDW 15.3 H (13.2-15.2) %
[2021-04-26 16:20] LABS: Hematocrit 25.2 % (30.3-42.9); Hemoglobin 8.3 gm/dl (10.1-14.3)
[2021-04-26] MEDS: FERROUS SULFATE 325 MG TAB PO SCH ×2 (18:42→23:17)
[2021-04-27] MEDS: IBUPROFEN 800 MG TAB PO SCH ×2 (05:10→13:11)
[2021-04-27] MEDS ORDERED: TETANUS,DIPH,PERTUSS(ACELL) VACCINE 0.5 ML SYRINGE IM ONE (06:00)
--- NOTE | 2021-04-27 06:29 | Discharge Summary ---
Providers - Providers Date of Admission: 04/26/21 01:07 Date of discharge: 04/27/21 Attending physician: SISSY AWAN Primary care physician: SISSY AWAN Hospitalization Reason for admission: other (home delivery) Delivery: Episiotomy: none Laceration: none Other procedures: other (requesting depo) complications: none [place] baby: female Pertinent studies: Pt states that she would like to follow up with her primary OB provider once discharged home. Hospital course: S: Pt is doing well. Ambulating, voiding, and passing flatus okay. BC: Depo. O: VSS. Fundus firm, minimal bleeding noted. H/H 8.3/25.2, asymptomatic anemia from delivery. A: 26 y.o. s/p , home delivery, limited PNC. In good condition . P: Discharge home with instructions. Pt to take iron supplement at home for 30 days. Pt to follow up with OB provider per patient wishes. Condition at discharge: Good Disposition: 01 HOME / SELF CARE / HOMELESS Plan - Discharge Medications Prescriptions: Docusate Sodium [Colace] 100 mg PO BID PRN #60 capsule PRN Reason: Constipation Ferrous Sulfate [Feosol 325 MG tab] 325 mg PO BID #60 tablet - Provider Discharge Summary Activity: routine, no sex for 6 weeks, no heavy lifting 4 weeks, no strenuous exercise Diet: routine Additional instructions: [] Smoking cessation referral if applicable(refer to patient education folder for contact #) [] Refer to [facility] Booklet Call your doctor immediately for: * Fever > 100.5 * Heavy vaginal bleeding ( >1 pad per hour) * Severe persistent headache * Shortness of breath * Reddened, hot, painful area to leg or breast * Drainage or odor from incision. * Keep incision clean and dry at all times and follow doctor's instructions regarding bathing/showering - Follow up plan Follow up: SISSY AWAN MD [Primary Care Provider] - 7 Days (Congratulations on the of your baby girl. Please call your primary OB provider for a visit in 4-6 weeks. Thank you for allowing us to take care of you. )
[2021-04-27] MEDS ORDERED: medroxyPROGESTERone ACETATE 150 MG/ML SYRINGE IM ONE (10:00)
[2021-04-27] MEDS: FERROUS SULFATE 325 MG TAB PO SCH (13:11)
[2021-04-27 16:51] VITALS: BP 115/48
== END 2021-04-27 17:55 | disposition home or self-care (01) | DRG 776 ==
LOC: LD 01:07 → OB 03:42
PROVIDERS: ADMIT Obstetrics & Gynecology; ATTEND Obstetrics & Gynecology
PROC: 3E0234Z Introduction of Serum, Toxoid and Vaccine into Muscle, Percutaneous Approach (ICD-10-PCS; principal; 2021-04-27)
DX: Z39.0 Encounter for care and examination of mother immediately after delivery (principal); Z20.822 Contact with and (suspected) exposure to COVID-19; Z23 Encounter for immunization
CPT/HCPCS: 36415; 85014; 85018; 85027; 85660; 86592; 86706; 86762; 86803; 86850; 86900; 86901; 87806; 90471; 90715; G0378; J1050; J2590; U0003

== ENCOUNTER 2021-05-18 20:36 | Emergency (ER) | payer MEDICAID ==
[2021-05-18 21:51] LABS: Bilirubin,Urine NEG (Negative); Blood,Urine LG (Negative); Color,Urine Yellow (Yellow); Mucus,Urine 1+ /HPF; Urobilinogen,Urine < 2.0 mg/dL (<2.0)
[2021-05-18 21:57] LABS: Basophils % (Auto) 0.6 % (0.0-1.8); Eosinophils # (Auto) 0.2 K/mm3 (0.0-0.4); Hematocrit 30.1 % (30.3-42.9); Hemoglobin 9.4 gm/dl (10.1-14.3); Lymphocytes # (Auto) 1.4 K/mm3 (1.2-5.4); Lymphocytes % (Auto) 23.8 % (13.4-35.0); Mean Corpuscular HGB Conc 31 % (30-34); Mean Corpuscular Volume 82 fl (79-97); Monocytes # (Auto) 0.5 K/mm3 (0.0-0.8); Monocytes % (Auto) 8.8 % (0.0-7.3); Platelet Count 202 K/mm3 (140-440); Red Blood Count 3.67 M/mm3 (3.65-5.03)
--- NOTE | 2021-05-18 22:09 | Emergency Department Report ---
ED Psych HPI - General Chief Complaint: Psych Stated Complaint: MENTAL HEALTH CONCERNS/SI Time Seen by Provider: 05/18/21 22:00 Source: patient Mode of arrival: Ambulatory Limitations: No Limitations - History of Present Illness Initial Comments: Patient is a 26-year-old female presenting to emergency department with complaint of depression and suicidal ideations for the past several weeks. States they have worsened since having her child 3 weeks ago. She denies any plan for suicide. 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 She denies any history of suicide attempts. MD Complaint: suicidal ideation, feels depressed -: week(s) (Several) Associated Psychiatric Symptoms: depression, suicidal ideation History of same: No Quality: getting worse Improves With: none Worsens With: none Context: not taking psychiatric Associated Symptoms: denies other symptoms Treatments Prior to Arrival: none If Self Harm: admits thoughts of - Related Data Previous Rx's Medication Instructions Recorded Last Taken Type Ibuprofen [Motrin] 800 mg PO Q8HR #30 tablet 05/24/19 Unknown Rx Metoclopramide [Reglan] 10 mg PO ACHS #20 tablet 12/11/19 Unknown Rx cephALEXin [Keflex] 500 mg PO Q12HR #14 cap 12/11/19 Unknown Rx Docusate Sodium [Colace] 100 mg PO BID PRN #60 capsule 04/27/21 Unknown Rx Ferrous Sulfate [Feosol 325 MG tab] 325 mg PO BID #60 tablet 04/27/21 Unknown Rx Ibuprofen [Motrin 800 MG tab] 800 mg PO Q8HR PRN #30 tablet 04/27/21 Unknown Rx Allergies Allergy/AdvReac Type Severity Reaction Status Date / Time No Known Allergies Allergy Verified 04/26/21 06:10 ED Review of Systems ROS: Stated complaint: MENTAL HEALTH CONCERNS/SI Other details as noted in HPI Constitutional: no symptoms reported Respiratory: no symptoms reported Cardiovascular: denies: chest pain, palpitations Endocrine: no symptoms reported Gastrointestinal: denies: abdominal pain, nausea, vomiting Genitourinary: denies: urgency, dysuria Musculoskeletal: denies: back pain, joint swelling, arthralgia Skin: denies: rash, lesions Neurological: denies: headache, weakness Psychiatric: depression, suicidal thoughts Hematological/Lymphatic: denies: easy bleeding, easy bruising ED Past Medical Hx - Past Medical History Hx Hypertension: No Hx Diabetes: No Hx Deep Vein Thrombosis: No Hx Renal Disease: No Hx Sickle Cell Disease: No Hx Seizures: No Hx Psychiatric Treatment: Yes (anxiety, depression) Hx Asthma: No Hx COPD: No Hx HIV: No - Social History Smoking Status: Former Smoker - Medications Home Medications: Home Medications Medication Instructions Recorded Confirmed Last Taken Type Ibuprofen [Motrin] 800 mg PO Q8HR #30 tablet 05/24/19 04/26/21 Unknown Rx Metoclopramide [Reglan] 10 mg PO ACHS #20 tablet 12/11/19 04/26/21 Unknown Rx cephALEXin [Keflex] 500 mg PO Q12HR #14 cap 12/11/19 04/26/21 Unknown Rx Docusate Sodium [Colace] 100 mg PO BID PRN #60 capsule 04/27/21 Unknown Rx Ferrous Sulfate [Feosol 325 MG tab] 325 mg PO BID #60 tablet 04/27/21 Unknown Rx Ibuprofen [Motrin 800 MG tab] 800 mg PO Q8HR PRN #30 tablet 04/27/21 Unknown Rx ED Physical Exam - General Limitations: No Limitations General appearance: alert, in no apparent distress - Head Head exam: Present: atraumatic, normocephalic - Eye Eye exam: Present: normal appearance, EOMI - Respiratory Respiratory exam: Present: normal lung sounds bilaterally. Absent: respiratory distress - Cardiovascular Cardiovascular Exam: Present: regular rate, normal rhythm. Absent: systolic murmur, diastolic murmur, rubs, gallop - GI/Abdominal GI/Abdominal exam: Present: soft, normal bowel sounds - Rectal Rectal exam: Present: deferred - Extremities Exam Extremities exam: Present: normal inspection - Back Exam Back exam: Present: normal inspection - Neurological Exam Neurological exam: Present: alert, oriented X3 - Psychiatric Psychiatric exam: Present: depressed, suicidal ideation - Skin Skin exam: Present: warm, dry, intact, normal color. Absent: rash ED Medical Decision Making - Lab Data Result diagrams: 05/18/21 21:34 Critical care attestation.: If time is entered above; I have spent that time in minutes in the direct care of this critically ill patient, excluding procedure time. ED Disposition Condition: Stable
[2021-05-18 22:21] LABS: Blood Urea Nitrogen 13 mg/dL (7-17); Calcium 9.3 mg/dL (8.4-10.2); Hemolysis Index 0
[2021-05-18 22:23] LABS: Amphetamine Screen,Urine PRESUMPTIVE NEGATIVE; Benzodiazepines Screen,Urine PRESUMPTIVE NEGATIVE; Cannabinoid Screen,Urine PRESUMPTIVE NEGATIVE; Cocaine Screen,Urine PRESUMPTIVE NEGATIVE; Methadone Screen,Urine PRESUMPTIVE NEGATIVE; Opiate Screen,Urine PRESUMPTIVE NEGATIVE
[2021-05-18 22:38] LABS: BUN/Creatinine Ratio 22
[2021-05-19 07:50] VITALS: BP 115/78
--- NOTE | 2021-05-19 11:02 | Consultation ---
History of Present Illness - Reason for Consult Consult date: 05/19/21 Reason for consult: SI, depressed - History of Present Psychiatric Illness The patient was seen today. She says she came to the ER because she got into it with her "baby's father and his family keeps blaming her for everything." She says she lives with them. The patient says when she came to the ER she was depressed and felt a little suicidal. She says "I no longer feel that way now." The patient says she's been off her meds since last year for depression and anxiety. She could not recall them. She denies SI/HI or any fear or feelings of endangerment. PAST PSYCHIATRIC HISTORY: Diagnoses: PPD, NICK Suicide attempts or Self-harm behavior: Denies Prior psychiatric hospitalizations: Denies Substance Abuse history: Denies Previous psychiatric medications tried: could not recall Outpatient treatment: Denies PAST MEDICAL HISTORY: None reported or document Family Psychiatric History: None reported or documented SOCIAL HISTORY Marital Status: Single Living Arrangements: Lives with kids father Employment Status: Unemployed Access to guns/weapons: Denies Education: History of Abuse: Denies Legal History: Denies REVIEW OF SYSTEMS Constitutional: Negative for weight loss ENT: Negative for stridor Respiratory: Negative for cough or hemoptysis All other systems reviewed and are negative MENTAL STATUS EXAMINATION General Appearance and Behavior: Age appropriate, good hygiene, wearing appropriate clothes. calm, cooperative Cooperation: cooperative Psychomotor Behavior: Psychomotor normal Mood: depressed Affect and affective range: congruent with stated mood Thought Process: goal directed Thought Content: None Speech: Normal volume, Regular rate and rhythm Suicidal Ideation: Denies Homicidal Ideation: Denies Hallucinations: Denies Delusions: none elicited Impulse Control: Limited Insight and Judgment: Limited Memory: limited Attention: Attentive Orientation: alert and oriented Assessment and Plan (1) Major Depressive Disorder Treatment Plan d/c 1013 Zoloft 25mg po daily Sitter: refer to medical Medical: per primary Disposition: Do not recommend acute psychiatric inpatient treatment. The patient understands that if SI/HI or any feelings of endangerment arise she is to seek immediate assistance. The rod and tube straightener to further discuss safety plan and give the patient all necessary outpatient resources The patient to follow up with outpatient in 7 to 14 days upon discharge Will sign off. Thanks [facility] staffed with Dr. Mccray Medications and Allergies Allergies Allergy/AdvReac Type Severity Reaction Status Date / Time No Known Allergies Allergy Verified 04/26/21 06:10 Home Medications Medication Instructions Recorded Confirmed Last Taken Type Ibuprofen [Motrin] 800 mg PO Q8HR #30 tablet 05/24/19 04/26/21 Unknown Rx Metoclopramide [Reglan] 10 mg PO ACHS #20 tablet 12/11/19 04/26/21 Unknown Rx cephALEXin [Keflex] 500 mg PO Q12HR #14 cap 12/11/19 04/26/21 Unknown Rx Docusate Sodium [Colace] 100 mg PO BID PRN #60 capsule 04/27/21 Unknown Rx Ferrous Sulfate [Feosol 325 MG tab] 325 mg PO BID #60 tablet 04/27/21 Unknown R x Ibuprofen [Motrin 800 MG tab] 800 mg PO Q8HR PRN #30 tablet 04/27/21 Unknown Rx Sertraline [Zoloft] 25 mg PO QDAY #30 tab 05/19/21 Unknown Rx Mental Status Exam - Vital signs Last Vital Signs Temp 98.2 F 05/19/21 07:49 Pulse 68 05/19/21 07:49 Resp 18 05/19/21 07:49 BP 115/78 05/19/21 07:49 Pulse Ox 100 05/19/21 07:49 Results Result Diagrams: 05/18/21 21:34 05/18/21 21:34 Abnormal lab results 05/18/21 05/18/21 05/18/21 Range/Units 21:34 21:34 21:34 Hgb (10.1-14.3) gm/dl Hct (30.3-42.9) % MCH (28-32) pg RDW (13.2-15.2) % Quay % (Auto) (0.0-7.3) % Chloride 109.5 H (98-107) mmol/L Glucose 105 H (65-100) mg/dL Urine WBC (Auto) (0.0-6.0) /HPF Salicylates < 0.3 L (2.8-20.0) mg/dL Acetaminophen 5.0 L (10.0-30.0) ug/mL 05/18/21 05/18/21 Range/Units 21:34 Unknown Hgb 9.4 L (10.1-14.3) gm/dl Hct 30.1 L (30.3-42.9) % MCH 26 L (28-32) pg RDW 19.0 H (13.2-15.2) % Quay % (Auto) 8.8 H (0.0-7.3) % Chloride (98-107) mmol/L Glucose (65-100) mg/dL Urine WBC (Auto) 47.0 H (0.0-6.0) /HPF Salicylates (2.8-20.0) mg/dL Acetaminophen (10.0-30.0) ug/mL All other labs normal.
--- NOTE | 2021-05-19 11:35 | Emergency Department Report ---
Blank Doc - Documentation Documentation: 26-year-old female with depression and suicidal ideation who has been noncompliant with recently prescribed antidepressant medication. Patient seen by [facility] and states today she is no longer suicidal. She has been medically cleared by mental health for discharge. [facility] has written a prescription for Zoloft and patient took first dose in the ED prior to discharge. UA shows blood and white cells and patient does endorse vaginal bleeding without dysuria or frequency
[2021-05-19] MEDS ORDERED: SERTRALINE 25 MG TAB PO SCH (12:00)
== END 2021-05-19 13:04 | disposition home or self-care (01) ==
LOC: EEVIPCON 20:36 → ED 20:36
DX: R45.851 Suicidal ideations (principal); F41.8 Other specified anxiety disorders; Z87.891 Personal history of nicotine dependence; Z20.822 Contact with and (suspected) exposure to COVID-19
CPT/HCPCS: 36415; 80048; 80307; 81001; 84703; 85025; 87086; 99284; U0003; 80320; G0480